=== PATIENT | female | born 1955 | race Caucasian/White ===

== ENCOUNTER 2023-10-17 15:15 | Emergency (ER) | payer MEDICARE ==
[2023-10-17] MEDS ORDERED: SODIUM CHLORIDE 0.9% 1,000 ML IV ONE (15:26)
--- NOTE | 2023-10-17 15:36 | ED ---
Altered Mental Status HPI - General Source: EMS, RN notes reviewed, old records reviewed Mode of arrival: EMS Limitations: altered mental status - History of Present Illness MD Complaint: altered mental status, confusion, decreased responsiveness, weakness -: days(s) Severity: moderate Consistency of Symptoms: waxing and waning, getting worse Context: history of similar presentation Associated Symptoms: nausea/vomiting, weakness Treatments Prior to Arrival: IV fluid <Javan Linn - Last Filed: 10/17/23 19:55> <Jericho Mao - Last Filed: 10/18/23 06:56> <Javan Viveros - Last Filed: 10/18/23 13:42> - General Chief Complaint: Altered Mental Status Stated Complaint: Altered Mental Status Time Seen by Provider: 10/17/23 15:21 - History of Present Illness Initial Comments: This is a 68-year-old female to the emergency department for evaluation today. Patient presents to the emergency department today for evaluation of multiple medical abnormalities including renal failure and liver failure altered mental status. Patient is brought and outside facility transfer here for further evaluation management. Patient was sent to us for evaluation of possibility in regards to need for gallbladder ultrasound On arrival to the emergency department patient is found to have no gallbladder prior history of gallbladder surgery (Javan Linn) - Related Data Allergies Allergy/AdvReac Type Severity Reaction Status Date / Time No Known Allergies Allergy Verified 10/18/23 13:35 Review of Systems ROS Other: All systems not noted in ROS Statement are negative. <Javan Linn - Last Filed: 10/17/23 19:55> ROS Other: All systems not noted in ROS Statement are negative. <Jericho Mao - Last Filed: 10/18/23 06:56> ROS Other: All systems not noted in ROS Statement are negative. <Javan Viveros - Last Filed: 10/18/23 13:42> ROS Statement: Those systems with pertinent positive or pertinent negative responses have been documented in the HPI. Past Medical History Past Medical History: No Reported History History of Any Multi-Drug Resistant Organisms: Unobtainable Past Surgical History: No Surgical Hx Reported Past Psychological History: Unable to Obtain Smoking Status: Unknown if ever smoked Past Alcohol Use History: Unable to Obtain Past Drug Use History: Unable to Obtain <Javan Linn - Last Filed: 10/17/23 19:55> General Exam Limitations: altered mental status General appearance: alert, in no apparent distress Head exam: Present: atraumatic, normocephalic, normal inspection Eye exam: Present: normal appearance, PERRL, EOMI. Absent: scleral icterus, conjunctival injection, periorbital swelling ENT exam: Present: normal exam, mucous membranes moist Neck exam: Present: normal inspection. Absent: tenderness, meningismus, lymphadenopathy Respiratory exam: Present: normal lung sounds bilaterally. Absent: respiratory distress, wheezes, rales, rhonchi, stridor Cardiovascular Exam: Present: regular rate, normal rhythm, normal heart sounds. Absent: systolic murmur, diastolic murmur, rubs, gallop, clicks GI/Abdominal exam: Present: soft, normal bowel sounds. Absent: distended, ten derness, guarding, rebound, rigid Extremities exam: Present: normal inspection, full ROM, normal capillary refill. Absent: tenderness, pedal edema, joint swelling, calf tenderness Back exam: Present: normal inspection Neurological exam: Present: alert, oriented X3, CN II-XII intact Psychiatric exam: Present: normal affect, normal mood Skin exam: Present: warm, dry, intact, normal color. Absent: rash <Javan Linn - Last Filed: 10/17/23 19:55> Course <Javan Linn - Last Filed: 10/17/23 19:55> <Jericho Mao - Last Filed: 10/18/23 06:56> Vital Signs 10/17/23 10/17/23 10/17/23 15:20 17:51 19:38 Temperature 98.2 F Pulse Rate 88 85 85 Respiratory 18 20 16 Rate Blood Pressure 139/55 125/58 101/55 O2 Sat by Pulse 97 97 97 Oximetry 10/17/23 10/17/23 10/18/23 21:52 23:14 01:44 Temperature Pulse Rate 89 88 87 Respiratory 16 16 18 Rate Blood Pressure 119/54 121/56 119/51 O2 Sat by Pulse 98 96 96 Oximetry 10/18/23 10/18/23 10/18/23 02:00 03:00 07:08 Temperature Pulse Rate 86 87 96 Respiratory 13 18 18 Rate Blood Pressure 119/51 115/52 114/46 O2 Sat by Pulse 96 92 L 98 Oximetry 10/18/23 10/18/23 10/18/23 08:05 09:50 10:00 Temperature 97.4 F L Pulse Rate 94 92 93 Respiratory 23 20 18 Rate Blood Pressure 105/49 118/61 114/60 O2 Sat by Pulse 95 94 L 93 L Oximetry 10/18/23 10/18/23 10/18/23 10:10 10:20 10:30 Temperature 97.1 F L 97.1 F L Pulse Rate 92 93 92 Respiratory 19 22 25 H Rate Blood Pressure 100/61 114/70 113/63 O2 Sat by Pulse 94 L 95 95 Oximetry 10/18/23 10/18/23 10/18/23 10:40 10:50 11:00 Temperature Pulse Rate 96 97 96 Respiratory 24 26 H 26 H Rate Blood Pressure 129/84 129/69 130/61 O2 Sat by Pulse 94 L 94 L 93 L Oximetry 10/18/23 10/18/23 10/18/23 11:10 11:20 11:30 Temperature Pulse Rate 92 91 90 Respiratory 19 19 19 Rate Blood Pressure 93/77 114/52 116/59 O2 Sat by Pulse 93 L 94 L 93 L Oximetry 10/18/23 10/18/23 10/18/23 11:45 12:00 12:10 Temperature Pulse Rate 89 90 94 Respiratory 17 22 24 Rate Blood Pressure 108/48 105/57 111/55 O2 Sat by Pulse 94 L 90 L 94 L Oximetry - Reevaluation(s) Reevaluation #1: 10/17/23 17:53 Medical record is reviewed (Javan Linn) Reevaluation #2: 10/17/23 17:53 Patient symptoms are unchanged Patient family continues to deny any significant medical history denies any significant alcohol or drug use They do reiterate the patient was recently prescribed Bactrim for cellulitis (Javan Linn) Reevaluation #3: 10/17/23 17:53 Patient family informed of results and questions answered (Javan Linn) Reevaluation #4: 10/17/23 15:55 Was pt. sent in by a medical professional or institution (, PA, CEMENT TRUCK DRIVER, urgent care, hospital, or penitentiary...) When possible be specific @ -no Did you speak to anyone other than the patient for history (EMS, parent, family, police, friend...)? What history was obtained from this source @ -no Did you review nursing and triage notes (agree or disagree)? Why? @ -agree Are old charts reviewed (outside hosp., previous admission, EMS record, old EKG, old radiological studies, urgent care reports/EKG's, penitentiary records)? Report findings @ -yes Differential Diagnosis (chest pain, altered mental status, abdominal pain women, abdominal pain men, vaginal bleeding, weakness, fever, dyspnea, syncope, headache, dizziness, GI bleed, back pain, seizure, CVA, palpatations, mental health, musculoskeletal)? @ -prior EKG interpreted by me (3pts min.). @ -yes X-rays interpreted by me (1pt min.). @ -yes CT interpreted by me (1pt min.). @ -no U/S interpreted by me (1pt. min.). @ -no What testing was considered but not performed or refused? (CT, X-rays, U/S, labs)? Why? @ -none What meds were considered but not given or refused? Why? @ -none Did you discuss the management of the patient with other professionals (professionals i.e. , PA, CEMENT TRUCK DRIVER, lab, RT, psych nurse, social work supervisor, insurance claims specialist, teacher, security patrol officer, case advocate)? Give summary @ -no Was smoking cessation discussed for >3mins.? @ -no Was critical care preformed (if so, how long)? @ -no Were there social determinants of health that impacted care today? How? (Homelessness, low income, unemployed, alcoholism, drug addiction, transportation, low edu. Level, literacy, decrease access to med. care, half-way, rehab)? @ -none Was there de-escalation of care discussed even if they declined (Discuss DNR or withdrawal of care, Hospice)? DNR status @ -no What co-morbidities impacted this encounter? (DM, HTN, Smoking, COPD, CAD, Cancer, CVA, ARF, Chemo, Hep., AIDS, mental health diagnosis, sleep apnea, morbid obesity)? @ -none Was patient admitted / discharged? Hospital course, mention meds given and route, prescriptions, significant lab abnormalities, going to OR and other pertinent info. @ - Undiagnosed new problem with uncertain prognosis? @ -no Drug Therapy requiring intensive monitoring for toxicity (Heparin, Nitro, Insulin, Cardizem)? @ -no Were any procedures done? @ -no Diagnosis/symptom? @ - Acute, or Chronic, or Acute on Chronic? @ -Acute Uncomplicated (without systemic symptoms) or Complicated (systemic symptoms)? @ -Complicated Side effects of treatment? @ -no Exacerbation, Progression, or Severe Exacerbation? @ -exacerbation Poses a threat to life or bodily function? How? (Chest pain, USA, PR, pneumonia, PE, COPD, DKA, ARF, appy, cholecystitis, CVA, Diverticulitis, Homicidal, Suicidal, threat to staff... and all critical care pts) @ -yes (Javan Linn) Reevaluation #5: 10/17/23 19:58 Differential Altered Mental Status: Hypoglycemia, DKA, hypercapnia, ETOH, overdose, CO poisoning, trauma, myxedema coma, HTN encephalopathy, infection, encephalitis, psychosis, intercranial hemorrhage, hepatic encephalopathy, meningitis, CVA, this is not meant to be an all-inclusive list (Javan Linn) - Consultations Consultation #1: Spoke [facility] regarding transfer Patient for inpatient transfer (Javan Linn) Consultation #2: Patient is a 68-year-old woman who was pending transfer to [facility], to their ICU to see the GI specialist related to hepatic failure. I was called to the bedside at approximately 6:40AM, as it was reported the patient had large dark bowel movement. I did evaluate patient and there does appear to be definitely melanotic stool. I ordered labs. We phone [facility] and they state that the patient is still pending bed availability in the intensive care unit there. (Jericho Mao) Medical Decision Making - Lab Data Result diagrams: 10/17/23 15:45 10/17/23 15:45 <Javan Linn - Last Filed: 10/17/23 19:55> - Lab Data Result diagrams: 10/17/23 15:45 10/17/23 15:45 <Jericho Mao - Last Filed: 10/18/23 06:56> - Lab Data Result diagrams: 10/18/23 07:25 10/18/23 07:25 <Javan Viveros - Last Filed: 10/18/23 13:42> - Medical Decision Making Patient was going to be transferred to [facility] however family was indicating they wanted comfort care for the patient intact patient hospice and they will make any attempts at that I admitted the patient to Dr. Lacy at this point time. (Javan Viveros) - Lab Data Lab Results 10/17/23 10/17/23 10/17/23 Range/Units 15:45 15:45 15:45 WBC 12.8 H (3.8-10.6) k/uL RBC 3.94 (3.80-5.40) m/uL Hgb 11.9 (11.4-16.0) gm/dL Hct 34.6 (34.0-46.0) % MCV 87.7 (80.0-100.0) fL MCH 30.3 (25.0-35.0) pg MCHC 34.6 (31.0-37.0) g/dL RDW 15.2 (11.5-15.5) % Plt Count 82 L (150-450) k/uL MPV 10.8 Neutrophils % 86 % Lymphocytes % 6 % Monocytes % 5 % Eosinophils % 0 % Basophils % 1 % Neutrophils # 11.0 H (1.3-7.7) k/uL Lymphocytes # 0.8 L (1.0-4.8) k/uL Monocytes # 0.7 (0-1.0) k/uL Eosinophils # 0.0 (0-0.7) k/uL Basophils # 0.1 (0-0.2) k/uL Manual Slide Review Performed PT 37.9 H (10.0-12.5) sec INR 3.9 H (<1.2) APTT 46.5 H (22.0-30.0) sec VBG pH (7.31-7.41) VBG pCO2 (37-51) mmHg VBG HCO3 (24-28) mmol/L Sodium (137-145) mmol/L Potassium (3.5-5.1) mmol/L Chloride (98-107) mmol/L Carbon Dioxide (22-30) mmol/L Anion Gap mmol/L BUN (7-17) mg/dL Creatinine (0.52-1.04) mg/dL Est GFR (CKD-EPI)AfAm (>60 ml/min/1.73 sqM) Est GFR (CKD-EPI)NonAf (>60 ml/min/1.73 sqM) Glucose (74-99) mg/dL POC Glucose (mg/dL) (70-110) mg/dL POC Glu Contact Center Representative ID Lactic Ac Sepsis Rflx Plasma Lactic Acid Otoniel (0.7-2.0) mmol/L Calcium (8.4-10.2) mg/dL Phosphorus (2.5-4.5) mg/dL Magnesium (1.6-2.3) mg/dL Total Bilirubin (0.2-1.3) mg/dL AST (14-36) U/L ALT (4-34) U/L Alkaline Phosphatase (38-126) U/L Ammonia (<30) umol/L Troponin I (0.000-0.034) ng/mL Total Protein (6.3-8.2) g/dL Albumin (3.5-5.0) g/dL Urine Color Dark Brown Urine Appearance Turbid H (Clear) Urine pH 5.0 (5.0-8.0) Ur Specific Harrington 1.021 (1.001-1.035) Urine Protein 1+ H (Negative) Urine Glucose (UA) Trace H (Negative) Urine Ketones Negative (Negative) Urine Blood Small H (Negative) Urine Nitrite Negative (Negative) Urine Bilirubin 1+ H (Negative) Urine Urobilinogen 2.0 (<2.0) mg/dL Ur Leukocyte Esterase Small H (Negative) Urine RBC 26 H (0-5) /hpf Urine WBC 27 H (0-5) /hpf Urine Bacteria Rare H (None) /hpf Hyaline Casts 58 H (0-2) /lpf Urine Mucus Occasional H (None) /hpf Stool Occult Blood (Negative) Urine Opiates Screen Not Detected (NotDetected) Ur Oxycodone Screen Not Detected (NotDetected) Urine Methadone Screen Not Detected (NotDetected) Acetaminophen ug/mL Ur Barbiturates Screen Not Detected (NotDetected) U Tricyclic Antidepress Not Detected (NotDetected) Ur Phencyclidine Scrn Not Detected (NotDetected) Ur Amphetamines Screen Not Detected (NotDetected) U Methamphetamines Scrn Not Detected (NotDetected) U Benzodiazepines Scrn Not Detected (NotDetected) Urine Cocaine Screen Not Detected (NotDetected) U Marijuana (THC) Screen Not Detected (NotDetected) Ur Drug Screen Comment SEE COMMENT Serum Alcohol mg/dL Acetone, Qual (Negative) SARS-CoV-2 (PCR) (Not Detectd) Blood Type Blood Type Confirm Blood Type Recheck Bld Type Recheck Status Antibody Screen Transfuse Plasma Spec Expiration Date 10/17/23 10/17/23 10/17/23 Range/Units 15:45 15:45 15:45 WBC (3.8-10.6) k/uL RBC (3.80-5.40) m/uL Hgb (11.4-16.0) gm/dL Hct (34.0-46.0) % MCV (80.0-100.0) fL MCH (25.0-35.0) pg MCHC (31.0-37.0) g/dL RDW (11.5-15.5) % Plt Count (150-450) k/uL MPV Neutrophils % % Lymphocytes % % Monocytes % % Eosinophils % % Basophils % % Neutrophils # (1.3-7.7) k/uL Lymphocytes # (1.0-4.8) k/uL Monocytes # (0-1.0) k/uL Eosinophils # (0-0.7) k/uL Basophils # (0-0.2) k/uL Manual Slide Review PT (10.0-12.5) sec INR (<1.2) APTT (22.0-30.0) sec VBG pH (7.31-7.41) VBG pCO2 (37-51) mmHg VBG HCO3 (24-28) mmol/L Sodium 128 L (137-145) mmol/L Potassium 4.0 (3.5-5.1) mmol/L Chloride 98 (98-107) mmol/L Carbon Dioxide 12 L (22-30) mmol/L Anion Gap 18 mmol/L BUN 54 H (7-17) mg/dL Creatinine 4.84 H (0.52-1.04) mg/dL Est GFR (CKD-EPI)AfAm 10 (>60 ml/min/1.73 sqM) Est GFR (CKD-EPI)NonAf 9 (>60 ml/min/1.73 sqM) Glucose 91 (74-99) mg/dL POC Glucose (mg/dL) (70-110) mg/dL POC Glu Contact Center Representative ID Lactic Ac Sepsis Rflx Plasma Lactic Acid Otoniel (0.7-2.0) mmol/L Calcium 8.1 L (8.4-10.2) mg/dL Phosphorus 6.3 H (2.5-4.5) mg/dL Magnesium 2.1 (1.6-2.3) mg/dL Total Bilirubin 4.4 H (0.2-1.3) mg/dL AST 87 H (14-36) U/L ALT 49 H (4-34) U/L Alkaline Phosphatase 127 H (38-126) U/L Ammonia 75 H (<30) umol/L Troponin I 0.017 (0.000-0.034) ng/mL Total Protein 6.5 (6.3-8.2) g/dL Albumin 2.8 L (3.5-5.0) g/dL Urine Color Urine Appearance (Clear) Urine pH (5.0-8.0) Ur Specific Harrington (1.001-1.035) Urine Protein (Negative) Urine Glucose (UA) (Negative) Urine Ketones (Negative) Urine Blood (Negative) Urine Nitrite (Negative) Urine Bilirubin (Negative) Urine Urobilinogen (<2.0) mg/dL Ur Leukocyte Esterase (Negative) Urine RBC (0-5) /hpf Urine WBC (0-5) /hpf Urine Bacteria (None) /hpf Hyaline Casts (0-2) /lpf Urine Mucus (None) /hpf Stool Occult Blood (Negative) Urine Opiates Screen (NotDetected) Ur Oxycodone Screen (NotDetected) Urine Methadone Screen (NotDetected) Acetaminophen ug/mL Ur Barbiturates Screen (NotDetected) U Tricyclic Antidepress (NotDetected) Ur Phencyclidine Scrn (NotDetected) Ur Amphetamines Screen (NotDetected) U Methamphetamines Scrn (NotDetected) U Benzodiazepines Scrn (NotDetected) Urine Cocaine Screen (NotDetected) U Marijuana (THC) Screen (NotDetected) Ur Drug Screen Comment Serum Alcohol <10 mg/dL Acetone, Qual (Negative) SARS-CoV-2 (PCR) (Not Detectd) Blood Type Blood Type Confirm Blood Type Recheck Bld Type Recheck Status Antibody Screen Transfuse Plasma Spec Expiration Date 10/17/23 10/17/23 10/17/23 Range/Units 16:20 17:47 19:19 WBC (3.8-10.6) k/uL RBC (3.80-5.40) m/uL Hgb (11.4-16.0) gm/dL Hct (34.0-46.0) % MCV (80.0-100.0) fL MCH (25.0-35.0) pg MCHC (31.0-37.0) g/dL RDW (11.5-15.5) % Plt Count (150-450) k/uL MPV Neutrophils % % Lymphocytes % % Monocytes % % Eosinophils % % Basophils % % Neutrophils # (1.3-7.7) k/uL Lymphocytes # (1.0-4.8) k/uL Monocytes # (0-1.0) k/uL Eosinophils # (0-0.7) k/uL Basophils # (0-0.2) k/uL Manual Slide Review PT (10.0-12.5) sec INR (<1.2) APTT (22.0-30.0) sec VBG pH (7.31-7.41) VBG pCO2 (37-51) mmHg VBG HCO3 (24-28) mmol/L Sodium (137-145) mmol/L Potassium (3.5-5.1) mmol/L Chloride (98-107) mmol/L Carbon Dioxide (22-30) mmol/L Anion Gap mmol/L BUN (7-17) mg/dL Creatinine (0.52-1.04) mg/dL Est GFR (CKD-EPI)AfAm (>60 ml/min/1.73 sqM) Est GFR (CKD-EPI)NonAf (>60 ml/min/1.73 sqM) Glucose (74-99) mg/dL POC Glucose (mg/dL) 106 (70-110) mg/dL POC Glu Contact Center Representative ID Biland, Anjelica Lactic Ac Sepsis Rflx Plasma Lactic Acid Otoniel (0.7-2.0) mmol/L Calcium (8.4-10.2) mg/dL Phosphorus (2.5-4.5) mg/dL Magnesium (1.6-2.3) mg/dL Total Bilirubin (0.2-1.3) mg/dL AST (14-36) U/L ALT (4-34) U/L Alkaline Phosphatase (38-126) U/L Ammonia (<30) umol/L Troponin I (0.000-0.034) ng/mL Total Protein (6.3-8.2) g/dL Albumin (3.5-5.0) g/dL Urine Color Urine Appearance (Clear) Urine pH (5.0-8.0) Ur Specific Harrington (1.001-1.035) Urine Protein (Negative) Urine Glucose (UA) (Negative) Urine Ketones (Negative) Urine Blood (Negative) Urine Nitrite (Negative) Urine Bilirubin (Negative) Urine Urobilinogen (<2.0) mg/dL Ur Leukocyte Esterase (Negative) Urine RBC (0-5) /hpf Urine WBC (0-5) /hpf Urine Bacteria (None) /hpf Hyaline Casts (0-2) /lpf Urine Mucus (None) /hpf Stool Occult Blood (Negative) Urine Opiates Screen (NotDetected) Ur Oxycodone Screen (NotDetected) Urine Methadone Screen (NotDetected) Acetaminophen <10.0 ug/mL Ur Barbiturates Screen (NotDetected) U Tricyclic Antidepress (NotDetected) Ur Phencyclidine Scrn (NotDetected) Ur Amphetamines Screen (NotDetected) U Methamphetamines Scrn (NotDetected) U Benzodiazepines Scrn (NotDetected) Urine Cocaine Screen (NotDetected) U Marijuana (THC) Screen (NotDetected) Ur Drug Screen Comment Serum Alcohol mg/dL Acetone, Qual Negative (Negative) SARS-CoV-2 (PCR) Not Detected (Not Detectd) Blood Type Blood Type Confirm Blood Type Recheck Bld Type Recheck Status Antibody Screen Transfuse Plasma Spec Expiration Date 10/18/23 10/18/23 10/18/23 Range/Units 07:20 07:20 07:25 WBC 16.0 H (3.8-10.6) k/uL RBC 3.61 L (3.80-5.40) m/uL Hgb 10.9 L (11.4-16.0) gm/dL Hct 31.8 L (34.0-46.0) % MCV 88.1 (80.0-100.0) fL MCH 30.2 (25.0-35.0) pg MCHC 34.3 (31.0-37.0) g/dL RDW 15.2 (11.5-15.5) % Plt Count 92 L (150-450) k/uL MPV 9.7 Neutrophils % 87 % Lymphocytes % 7 % Monocytes % 4 % Eosinophils % 0 % Basophils % 1 % Neutrophils # 13.9 H (1.3-7.7) k/uL Lymphocytes # 1.1 (1.0-4.8) k/uL Monocytes # 0.6 (0-1.0) k/uL Eosinophils # 0.0 (0-0.7) k/uL Basophils # 0.1 (0-0.2) k/uL Manual Slide Review PT (10.0-12.5) sec INR (<1.2) APTT (22.0-30.0) sec VBG pH (7.31-7.41) VBG pCO2 (37-51) mmHg VBG HCO3 (24-28) mmol/L Sodium (137-145) mmol/L Potassium (3.5-5.1) mmol/L Chloride (98-107) mmol/L Carbon Dioxide (22-30) mmol/L Anion Gap mmol/L BUN (7-17) mg/dL Creatinine (0.52-1.04) mg/dL Est GFR (CKD-EPI)AfAm (>60 ml/min/1.73 sqM) Est GFR (CKD-EPI)NonAf (>60 ml/min/1.73 sqM) Glucose (74-99) mg/dL POC Glucose (mg/dL) (70-110) mg/dL POC Glu Contact Center Representative ID Lactic Ac Sepsis Rflx Plasma Lactic Acid Otoniel (0.7-2.0) mmol/L Calcium (8.4-10.2) mg/dL Phosphorus (2.5-4.5) mg/dL Magnesium (1.6-2.3) mg/dL Total Bilirubin (0.2-1.3) mg/dL AST (14-36) U/L ALT (4-34) U/L Alkaline Phosphatase (38-126) U/L Ammonia (<30) umol/L Troponin I (0.000-0.034) ng/mL Total Protein (6.3-8.2) g/dL Albumin (3.5-5.0) g/dL Urine Color Urine Appearance (Clear) Urine pH (5.0-8.0) Ur Specific Harrington (1.001-1.035) Urine Protein (Negative) Urine Glucose (UA) (Negative) Urine Ketones (Negative) Urine Blood (Negative) Urine Nitrite (Negative) Urine Bilirubin (Negative) Urine Urobilinogen (<2.0) mg/dL Ur Leukocyte Esterase (Negative) Urine RBC (0-5) /hpf Urine WBC (0-5) /hpf Urine Bacteria (None) /hpf Hyaline Casts (0-2) /lpf Urine Mucus (None) /hpf Stool Occult Blood (Negative) Urine Opiates Screen (NotDetected) Ur Oxycodone Screen (NotDetected) Urine Methadone Screen (NotDetected) Acetaminophen ug/mL Ur Barbiturates Screen (NotDetected) U Tricyclic Antidepress (NotDetected) Ur Phencyclidine Scrn (NotDetected) Ur Amphetamines Screen (NotDetected) U Methamphetamines Scrn (NotDetected) U Benzodiazepines Scrn (NotDetected) Urine Cocaine Screen (NotDetected) U Marijuana (THC) Screen (NotDetected) Ur Drug Screen Comment Serum Alcohol mg/dL Acetone, Qual (Negative) SARS-CoV-2 (PCR) (Not Detectd) Blood Type A Positive Blood Type Confirm Blood Type Recheck No Previous Record Bld Type Recheck Status CABO Indicated Antibody Screen NEGATIVE Transfuse Plasma 10/18/2023 Spec Expiration Date 10/21/2023231910/18/23 10/18/23 10/18/23 Range/Units 07:25 07:25 07:25 WBC (3.8-10.6) k/uL RBC (3.80-5.40) m/uL Hgb (11.4-16.0) gm/dL Hct (34.0-46.0) % MCV (80.0-100.0) fL MCH (25.0-35.0) pg MCHC (31.0-37.0) g/dL RDW (11.5-15.5) % Plt Count (150-450) k/uL MPV Neutrophils % % Lymphocytes % % Monocytes % % Eosinophils % % Basophils % % Neutrophils # (1.3-7.7) k/uL Lymphocytes # (1.0-4.8) k/uL Monocytes # (0-1.0) k/uL Eosinophils # (0-0.7) k/uL Basophils # (0-0.2) k/uL Manual Slide Review PT (10.0-12.5) sec INR (<1.2) APTT (22.0-30.0) sec VBG pH 7.30 L (7.31-7.41) VBG pCO2 27 L (37-51) mmHg VBG HCO3 14 L (24-28) mmol/L Sodium 132 L (137-145) mmol/L Potassium 3.6 (3.5-5.1) mmol/L Chloride 102 (98-107) mmol/L Carbon Dioxide 11 L (22-30) mmol/L Anion Gap 19 mmol/L BUN 59 H (7-17) mg/dL Creatinine 5.31 H (0.52-1.04) mg/dL Est GFR (CKD-EPI)AfAm 9 (>60 ml/min/1.73 sqM) Est GFR (CKD-EPI)NonAf 8 (>60 ml/min/1.73 sqM) Glucose 73 L (74-99) mg/dL POC Glucose (mg/dL) (70-110) mg/dL POC Glu Contact Center Representative ID Lactic Ac Sepsis Rflx Plasma Lactic Acid Otoniel 3.8 H* (0.7-2.0) mmol/L Calcium 7.8 L (8.4-10.2) mg/dL Phosphorus (2.5-4.5) mg/dL Magnesium (1.6-2.3) mg/dL Total Bilirubin 4.0 H (0.2-1.3) mg/dL AST 90 H (14-36) U/L ALT 47 H (4-34) U/L Alkaline Phosphatase 116 (38-126) U/L Ammonia 75 H (<30) umol/L Troponin I (0.000-0.034) ng/mL Total Protein 5.8 L (6.3-8.2) g/dL Albumin 2.5 L (3.5-5.0) g/dL Urine Color Urine Appearance (Clear) Urine pH (5.0-8.0) Ur Specific Harrington (1.001-1.035) Urine Protein (Negative) Urine Glucose (UA) (Negative) Urine Ketones (Negative) Urine Blood (Negative) Urine Nitrite (Negative) Urine Bilirubin (Negative) Urine Urobilinogen (<2.0) mg/dL Ur Leukocyte Esterase (Negative) Urine RBC (0-5) /hpf Urine WBC (0-5) /hpf Urine Bacteria (None) /hpf Hyaline Casts (0-2) /lpf Urine Mucus (None) /hpf Stool Occult Blood (Negative) Urine Opiates Screen (NotDetected) Ur Oxycodone Screen (NotDetected) Urine Methadone Screen (NotDetected) Acetaminophen ug/mL Ur Barbiturates Screen (NotDetected) U Tricyclic Antidepress (NotDetected) Ur Phencyclidine Scrn (NotDetected) Ur Amphetamines Screen (NotDetected) U Methamphetamines Scrn (NotDetected) U Benzodiazepines Scrn (NotDetected) Urine Cocaine Screen (NotDetected) U Marijuana (THC) Screen (NotDetected) Ur Drug Screen Comment Serum Alcohol mg/dL Acetone, Qual (Negative) SARS-CoV-2 (PCR) (Not Detectd) Blood Type Blood Type Confirm Blood Type Recheck Bld Type Recheck Status Antibody Screen Transfuse Plasma Spec Expiration Date 10/18/23 10/18/23 10/18/23 Range/Units 07:25 07:25 08:06 WBC (3.8-10.6) k/uL RBC (3.80-5.40) m/uL Hgb (11.4-16.0) gm/dL Hct (34.0-46.0) % MCV (80.0-100.0) fL MCH (25.0-35.0) pg MCHC (31.0-37.0) g/dL RDW (11.5-15.5) % Plt Count (150-450) k/uL MPV Neutrophils % % Lymphocytes % % Monocytes % % Eosinophils % % Basophils % % Neutrophils # (1.3-7.7) k/uL Lymphocytes # (1.0-4.8) k/uL Monocytes # (0-1.0) k/uL Eosinophils # (0-0.7) k/uL Basophils # (0-0.2) k/uL Manual Slide Review PT (10.0-12.5) sec INR (<1.2) APTT (22.0-30.0) sec VBG pH (7.31-7.41) VBG pCO2 (37-51) mmHg VBG HCO3 (24-28) mmol/L Sodium (137-145) mmol/L Potassium (3.5-5.1) mmol/L Chloride (98-107) mmol/L Carbon Dioxide (22-30) mmol/L Anion Gap mmol/L BUN (7-17) mg/dL Creatinine (0.52-1.04) mg/dL Est GFR (CKD-EPI)AfAm (>60 ml/min/1.73 sqM) Est GFR (CKD-EPI)NonAf (>60 ml/min/1.73 sqM) Glucose (74-99) mg/dL POC Glucose (mg/dL) (70-110) mg/dL POC Glu Contact Center Representative ID Lactic Ac Sepsis Rflx Y Plasma Lactic Acid Otoniel (0.7-2.0) mmol/L Calcium (8.4-10.2) mg/dL Phosphorus (2.5-4.5) mg/dL Magnesium (1.6-2.3) mg/dL Total Bilirubin (0.2-1.3) mg/dL AST (14-36) U/L ALT (4-34) U/L Alkaline Phosphatase (38-126) U/L Ammonia (<30) umol/L Troponin I (0.000-0.034) ng/mL Total Protein (6.3-8.2) g/dL Albumin (3.5-5.0) g/dL Urine Color Urine Appearance (Clear) Urine pH (5.0-8.0) Ur Specific Harrington (1.001-1.035) Urine Protein (Negative) Urine Glucose (UA) (Negative) Urine Ketones (Negative) Urine Blood (Negative) Urine Nitrite (Negative) Urine Bilirubin (Negative) Urine Urobilinogen (<2.0) mg/dL Ur Leukocyte Esterase (Negative) Urine RBC (0-5) /hpf Urine WBC (0-5) /hpf Urine Bacteria (None) /hpf Hyaline Casts (0-2) /lpf Urine Mucus (None) /hpf Stool Occult Blood Positive H (Negative) Urine Opiates Screen (NotDetected) Ur Oxycodone Screen (NotDetected) Urine Methadone Screen (NotDetected) Acetaminophen ug/mL Ur Barbiturates Screen (NotDetected) U Tricyclic Antidepress (NotDetected) Ur Phencyclidine Scrn (NotDetected) Ur Amphetamines Screen (NotDetected) U Methamphetamines Scrn (NotDetected) U Benzodiazepines Scrn (NotDetected) Urine Cocaine Screen (NotDetected) U Marijuana (THC) Screen (NotDetected) Ur Drug Screen Comment Serum Alcohol mg/dL Acetone, Qual (Negative) SARS-CoV-2 (PCR) (Not Detectd) Blood Type Blood Type Confirm A Positive Blood Type Recheck Bld Type Recheck Status Antibody Screen Transfuse Plasma Spec Expiration Date Critical Care Time Critical Care Time: Yes Total Critical Care Time: 31 <Javan Linn - Last Filed: 10/17/23 19:55> Disposition Is patient prescribed a controlled substance at d/c from ED?: No Time of Disposition: 18:00 - Out of Hospital Transfer - Req. Specs Out of Hospital Transfer - Requested Specifics: Other Emergency Center ([facility]) <Javan Linn - Last Filed: 10/17/23 19:55> <Jericho Mao - Last Filed: 10/18/23 06:56> <Javan Viveros - Last Filed: 10/18/23 13:42> Clinical Impression: Altered mental status, Uremia, Hyperammonemia, Acute renal failure, Acute liver failure Disposition: ADMITTED IP TO THIS HOSP Condition: Critical Referrals: Erasto Fischer MD [Primary Care Provider] - 1-2 days
[2023-10-17 16:22] LABS: Glucose,Whole Blood 106 mg/dL (70-110)
[2023-10-17 16:28] LABS: INR 3.9 (<1.2); Partial Thromboplastin Time 46.5 sec (22.0-30.0); Prothrombin Time 37.9 sec (10.0-12.5)
[2023-10-17 16:33] LABS: Basophils # (A) 0.1 k/uL (0-0.2); Basophils % (A) 1 %; Eosinophils % (A) 0 %; HCT 34.6 % (34.0-46.0); HGB 11.9 gm/dL (11.4-16.0); Lymphocytes # (A) 0.8 k/uL (1.0-4.8); Lymphocytes % (A) 6 %; MCH 30.3 pg (25.0-35.0); MCHC 34.6 g/dL (31.0-37.0); MCV 87.7 fL (80.0-100.0); Mean Platelet Volume 10.8; Monocytes # (A) 0.7 k/uL (0-1.0); Monocytes % (A) 5 %; Neutrophils % (A) 86 %; RBC 3.94 m/uL (3.80-5.40); RDW 15.2 % (11.5-15.5); WBC 12.8 k/uL (3.8-10.6)
[2023-10-17 16:57] LABS: Appearance,Urine Turbid (Clear); Bacteria,Urine Rare /hpf; Bilirubin,Urine 1+ (Negative); Blood,Urine Small (Negative); Color,Urine Dark Brown; Glucose,Urine (UA) Trace (Negative); Hyaline Casts,Urine 58 /lpf (0-2); Ketones,Urine Negative (Negative); Leukocyte Esterase,Urine Small (Negative); Mucus,Urine Occasional /hpf; Nitrite,Urine Negative (Negative); Protein,Urine 1+ (Negative); RBC,Urine 26 /hpf (0-5); Specific Gravity,Urine 1.021 (1.001-1.035); WBC,Urine 27 /hpf (0-5)
[2023-10-17 17:03] LABS: ALT 49 U/L (4-34); AST 87 U/L (14-36); African American GFR (CKD) 10 (>60 ml/min/1.73 sqM); Albumin 2.8 g/dL (3.5-5.0); Alcohol <10 mg/dL; Alkaline Phosphatase 127 U/L (38-126); Anion Gap 18 mmol/L; Blood Urea Nitrogen 54 mg/dL (7-17); Calcium 8.1 mg/dL (8.4-10.2); Carbon Dioxide 12 mmol/L (22-30); Chloride 98 mmol/L (98-107); Glucose 91 mg/dL (74-99); Magnesium 2.1 mg/dL (1.6-2.3); Non-African American GFR(CKD) 9 (>60 ml/min/1.73 sqM); Phosphorus 6.3 mg/dL (2.5-4.5); Sodium 128 mmol/L (137-145); Total Bilirubin 4.4 mg/dL (0.2-1.3); Total Protein 6.5 g/dL (6.3-8.2)
[2023-10-17 17:09] LABS: Amphetamine Screen,Urine Not Detected (NotDetected); Barbiturate Screen,Urine Not Detected (NotDetected); Benzodiazepines Screen,Urine Not Detected (NotDetected); Cocaine Screen,Urine Not Detected (NotDetected); Methadone Screen, Urine Not Detected (NotDetected); Opiate Screen,Urine Not Detected (NotDetected); Oxycodone Screen, Urine Not Detected (NotDetected); Phencyclidine Screen,Urine Not Detected (NotDetected); Tricyclic Antidepressant,Urine Not Detected (NotDetected); Urn Cannabinoid Scrn Not Detected (NotDetected)
[2023-10-17 17:16] LABS: Platelet Count 82 k/uL (150-450)
[2023-10-17] MEDS ORDERED: SODIUM CHLORIDE 0.9% 1,000 ML IV STA (17:38)
[2023-10-17] MEDS ORDERED: AMPICILLIN-SULBACTAM 3 GM in SODIUM CHLORIDE 0.9% 100 ML IVPB STA (17:38)
--- NOTE | 2023-10-17 17:41 | CT ---
EXAMINATION TYPE: CT ChestAbdPelvis wo con DATE OF EXAM: 10/17/2023 COMPARISON: None HISTORY: 68-year-old female with confusion, pain, AMS and abdominal bloating TECHNIQUE: Contiguous axial scanning of the chest, abdomen, and pelvis without IV contrast. Coronal a nd sagittal reconstructions performed. CT DLP: 1500.8 mGycm Automated exposure control for dose reduction was used. FINDINGS: Chest: Heart normal size without pericardial effusion. Generalized anasarca change. Aorta normal caliber with conventional branching anatomy. No obvious thoracic lymphadenopathy though assessment is limited by prominent breathing motion. Multifocal peribronchial vascular and peripheral groundglass airspace opacities especially in the upp er and mid lungs. No pleural effusion. ABDOMEN: Severe generalized anasarca change. Moderate abdominopelvic ascites. Limitations due to lack of IV contrast and extensive breathing motion. Liver mildly enlarged at 18.3 cm. Spleen is mildly enlarged at 14.0 cm. There may be diffuse gastric fold thickening or this could relate to nondistention. No obvious hydropic gallbladder change. Noncontrast appearance of the adrenal glands, kidneys, and pancreas otherwise show no gross abnormali ty. No dilated small bowel or free air is seen. Right limited assessment of the colon. Unable to exclude fold thickening of the ascending colon. Pelvis: Large pelvic ascites. Leger catheter is in place collapsing the bladder. Uterus is anteverted. The re gion of the ovaries were seen. No pelvic adenopathy seen. Bones: No obvious osseous destructive process. Prominent motion artifact and movement by the patient limiti ng the osseous structures. Normal-appearing sternal foramen. IMPRESSION: 1. MULTIFOCAL PERIBRONCHOVASCULAR AND PERIPHERAL GROUNDGLASS AIRSPACE DISEASE ESPECIALLY IN THE UPPER AND MIDLUNGS. CONSIDER COVID PNEUMONIA. 2. SEVERE GENERALIZED ANASARCA CHANGE. MODERATE ABDOMINAL AND MODERATE TO LARGE PELVIC ASCITES FLUID. FURTHER CLINICAL WORKUP AND EVALUATION IS ADVISED. 3. MILD SPLENOMEGALY (LIVER 18.3 CM AND SPLEEN 14.0 CM). 4. POSSIBLE GASTRIC FOLD THICKENING. POSSIBLE WALL THICKENING OF THE ASCENDING COLON WELL. UNABLE TO EXCLUDE UNDERLYING GASTRITIS OR NONSPECIFIC ASCENDING COLITIS. EXAM IS VERY LIMITED DUE TO LACK OF CONTRAST, GENERALIZED ANASARCA/ASCITES, AND EXTENSIVE PATIENT MOTION.
[2023-10-17 19:00] LABS: Acetaminophen <10.0 ug/mL
[2023-10-18 07:42] LABS: Basophils # (A) 0.1 k/uL (0-0.2); Basophils % (A) 1 %; Eosinophils % (A) 0 %; HCT 31.8 % (34.0-46.0); HGB 10.9 gm/dL (11.4-16.0); Lymphocytes # (A) 1.1 k/uL (1.0-4.8); Lymphocytes % (A) 7 %; MCH 30.2 pg (25.0-35.0); MCHC 34.3 g/dL (31.0-37.0); MCV 88.1 fL (80.0-100.0); Mean Platelet Volume 9.7; Monocytes # (A) 0.6 k/uL (0-1.0); Monocytes % (A) 4 %; Neutrophils # (A) 13.9 k/uL (1.3-7.7); Neutrophils % (A) 87 %; RBC 3.61 m/uL (3.80-5.40); RDW 15.2 % (11.5-15.5)
[2023-10-18 07:43] LABS: Platelet Count 92 k/uL (150-450); VBG PH 7.3 (7.31-7.41)
[2023-10-18 07:54] LABS: ALT 47 U/L (4-34); AST 90 U/L (14-36); African American GFR (CKD) 9 (>60 ml/min/1.73 sqM); Albumin 2.5 g/dL (3.5-5.0); Alkaline Phosphatase 116 U/L (38-126); Anion Gap 19 mmol/L; Blood Urea Nitrogen 59 mg/dL (7-17); Calcium 7.8 mg/dL (8.4-10.2); Carbon Dioxide 11 mmol/L (22-30); Chloride 102 mmol/L (98-107); Glucose 73 mg/dL (74-99); Non-African American GFR(CKD) 8 (>60 ml/min/1.73 sqM); Potassium 3.6 mmol/L (3.5-5.1); Sodium 132 mmol/L (137-145); Total Protein 5.8 g/dL (6.3-8.2)
[2023-10-18 07:59] LABS: Lactic Acid, Venous 3.8 mmol/L (0.7-2.0)
[2023-10-18] MEDS ORDERED: PIPERACILLIN-TAZOBACTAM 3.375 GM in SODIUM CHLORIDE 0.9% 100 ML IVPB SCH (08:00)
[2023-10-18] MEDS ORDERED: OCTREOTIDE 100 MCG/ML INJ IVP ONE (11:00)
[2023-10-18] MEDS ORDERED: OCTREOTIDE 500 MCG in SODIUM CHLORIDE 0.9% 250 ML IV ONE (11:15)
[2023-10-18] MEDS ORDERED: MORPHINE SULFATE 4 MG/ML SYRINGE IV PRN (13:30)
[2023-10-18] MEDS ORDERED: ATROPINE OPHTH SOLN 1% 5ML BTL SUBLINGUAL PRN (13:30)
[2023-10-18] MEDS ORDERED: MORPHINE SULFATE (100 MG/2 ML) 100 MG in SODIUM CHLORIDE 0.9% 100 ML IV SCH (13:30)
[2023-10-18] MEDS ORDERED: MORPHINE SULFATE 2 MG/ML SYRINGE IV PRN (13:30)
[2023-10-18 13:39] LABS: HCT 31.5 % (34.0-46.0); HGB 10.7 gm/dL (11.4-16.0); MCH 30.8 pg (25.0-35.0); MCV 90.6 fL (80.0-100.0); Mean Platelet Volume 10.3; Platelet Count 138 k/uL (150-450); RBC 3.48 m/uL (3.80-5.40); RDW 15.5 % (11.5-15.5)
[2023-10-18 13:56] LABS: ALT 54 U/L (4-34); AST 127 U/L (14-36); African American GFR (CKD) 8 (>60 ml/min/1.73 sqM); Albumin 2.5 g/dL (3.5-5.0); Alkaline Phosphatase 118 U/L (38-126); Anion Gap 25 mmol/L; Blood Urea Nitrogen 58 mg/dL (7-17); Calcium 7.7 mg/dL (8.4-10.2); Chloride 102 mmol/L (98-107); Non-African American GFR(CKD) 7 (>60 ml/min/1.73 sqM); Potassium 3.8 mmol/L (3.5-5.1); Sodium 133 mmol/L (137-145); Total Bilirubin 3.9 mg/dL (0.2-1.3); Total Protein 5.9 g/dL (6.3-8.2)
[2023-10-18 14:01] LABS: Carbon Dioxide 6 mmol/L (22-30); Glucose 44 mg/dL (74-99)
[2023-10-18 14:09] LABS: Glucose,Whole Blood 46 mg/dL (70-110)
[2023-10-18 14:27] LABS: Lymphocytes # (M) 2.25 k/uL (1.0-4.8); Neutrophils # (M) 21.75 k/uL (1.3-7.7); Neutrophils % (M) 87 %; Nucleated Red Blood Cells 0 /100 WBC (0-0); Total Cells Counted 100
[2023-10-18 14:28] LABS: Crenated RBC Present; Poikilocytosis (M) Present; Toxic Granulation Present; Toxic Vacuolation Present
--- NOTE | 2023-10-18 14:33 | P.HPIM ---
History of Present Illness H&P Date: 10/18/23 Chief Complaint: comfort care 68 year old woman with no significant medical history presented as a transfer from [facility] for presumed sepsis. Pt was subsequently found to be in fulminant liver failure during her ER workup as well as severe oliguric kidney failure. Pt was noted to have significant coagulopathy from liver failure as well and had several episodes of hematemesis, hematochezia and hematuria. She rec'd 1U FFP while hospitalized, was started on IVF, antibiotics, and octreotide. Given her acute liver failure, patient was recommended to be transferred to [facility] for liver transplatation evaluation, but unfortunately declined rapidly while in the ER. Pts family tells me that patient was in her usual state of health when she developed LE cellulitis about one week ago and was prescribed bactrim by her PCP. She had a rapid decline in mentation, and energy levels prompting her initial evaluation in [facility]. Review of systems could not be completed due to patient's mental status Gen: In respiratory distress, generally appears very ill, poor breathing pattern Eyes: PERRL, no scleral injection or icterus HENT: normocephalic, atraumatic, good hearing acuity, moist mucous membranes Neck: no tracheal deviation, full range of motion Resp: Impaired air exchange, CVS: good distal perfusion x 4, bilateral pitting edema GI: soft, NTTP, ND, no hepatosplenomegaly : no suprapubic tenderness, no CVAT, christian catheter is present MSK: no clubbing, no cyanosis, no noted contractures of extremities Skin: no noted rashes, petechiae; temperature of skin is appropriate Neuro: moving all extremities without signs of weakness, CN II-XII intact Patient was afebrile, normotensive, 88% on 3 Griselda nasal cannula, breathing at rate of 30, heart rate 84. CBC demonstrated leukocytosis 16,, cytopenias and 92, anemia of 10.9. Sodium was 132, CO2 is 11, anion gap was 19, BUN is 69, creatinine is 5.3, glucose was 73, lactic acid was 3.8. Liver function test showed total bilirubin of 4.0, AST of 90, ALT of 47, total protein of 5.8, albumin of 2.5. Alcohol level was positive. Covid was negative. EKG demonstrated normal sinus rhythm with normal axis. CT of the abdomen/pelvis showed multifocal groundglass airspace disease, severe generalized anasarca with moderate to large pelvic ascites, mild splenomegaly, gastric fold thickening versus ascending colon thickening. 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 Unfortunately, patient clinically declined rapidly. After discussion with the patient's and daughter, they requested time to have a family meeting so that they can decide on whether patient would prefer comfort care. After some deliberation, patient's family opted for comfort care for this patient. -Morphine drip was started with morphine when necessary for agitation, air hunger -Atropine drops for secretions -Hospice was consulted Past Medical History Past Medical History: No Reported History History of Any Multi-Drug Resistant Organisms: Unobtainable Past Surgical History: No Surgical Hx Reported Past Psychological History: Unable to Obtain Smoking Status: Unknown if ever smoked Past Alcohol Use History: Unable to Obtain Past Drug Use History: Unable to Obtain Medications and Allergies Home Medications Medication Instructions Recorded Confirmed Type Sulfamethox-Tmp 800-160Mg [Bactrim 1 tab PO Q12HR 10/18/23 10/18/23 History DS 800-160 mg] Allergies Allergy/AdvReac Type Severity Reaction Status Date / Time No Known Allergies Allergy Verified 10/18/23 13:35 Physical Exam Osteopathic Statement: *. No significant issues noted on an osteopathic structural exam other than those noted in the History and Physical/Consult. Vitals: Vital Signs Temp Pulse Resp BP Pulse Ox 10/18/23 12:10 94 24 111/55 94 L 10/18/23 12:00 90 22 105/57 90 L 10/18/23 11:45 89 17 108/48 94 L 10/18/23 11:30 90 19 116/59 93 L 10/18/23 11:20 91 19 114/52 94 L 10/18/23 11:10 92 19 93/77 93 L 10/18/23 11:00 96 26 H 130/61 93 L 10/18/23 10:50 97 26 H 129/69 94 L 10/18/23 10:40 96 24 129/84 94 L 10/18/23 10:30 92 25 H 113/63 95 10/18/23 10:20 97.1 F L 93 22 114/70 95 10/18/23 10:10 97.1 F L 92 19 100/61 94 L 10/18/23 10:00 93 18 114/60 93 L 10/18/23 09:50 92 20 118/61 94 L 10/18/23 08:05 97.4 F L 94 23 105/49 95 10/18/23 07:08 96 18 114/46 98 10/18/23 03:00 87 18 115/52 92 L 10/18/23 02:00 86 13 119/51 96 10/18/23 01:44 87 18 119/51 96 10/17/23 23:14 88 16 121/56 96 10/17/23 21:52 89 16 119/54 98 10/17/23 19:38 85 16 101/55 97 10/17/23 17:51 85 20 125/58 97 10/17/23 15:20 98.2 F 88 18 139/55 97 Intake and Output 10/17/23 10/18/23 10/18/23 22:59 06:59 14:59 Intake Total 0 Balance 0 Intake: Blood Product 0 Unit 0 Other: Weight 79.379 kg Results CBC & Chem 7: 10/18/23 13:23 10/18/23 13:23 Labs: Abnormal Lab Results - Last 24 Hours (Table) 10/17/23 10/17/23 10/17/23 Range/Units 15:45 15:45 15:45 WBC 12.8 H (3.8-10.6) k/uL RBC (3.80-5.40) m/uL Hgb (11.4-16.0) gm/dL Hct (34.0-46.0) % Plt Count 82 L (150-450) k/uL Neutrophils # 11.0 H (1.3-7.7) k/uL Lymphocytes # 0.8 L (1.0-4.8) k/uL PT 37.9 H (10.0-12.5) sec INR 3.9 H (<1.2) APTT 46.5 H (22.0-30.0) sec VBG pH (7.31-7.41) VBG pCO2 (37-51) mmHg VBG HCO3 (24-28) mmol/L Sodium (137-145) mmol/L Carbon Dioxide (22-30) mmol/L BUN (7-17) mg/dL Creatinine (0.52-1.04) mg/dL Glucose (74-99) mg/dL POC Glucose (mg/dL) (70-110) mg/dL Plasma Lactic Acid Otoniel (0.7-2.0) mmol/L Calcium (8.4-10.2) mg/dL Phosphorus (2.5-4.5) mg/dL Total Bilirubin (0.2-1.3) mg/dL AST (14-36) U/L ALT (4-34) U/L Alkaline Phosphatase (38-126) U/L Ammonia (<30) umol/L Total Protein (6.3-8.2) g/dL Albumin (3.5-5.0) g/dL Urine Appearance Turbid H (Clear) Urine Protein 1+ H (Negative) Urine Glucose (UA) Trace H (Negative) Urine Blood Small H (Negative) Urine Bilirubin 1+ H (Negative) Ur Leukocyte Esterase Small H (Negative) Urine RBC 26 H (0-5) /hpf Urine WBC 27 H (0-5) /hpf Urine Bacteria Rare H (None) /hpf Hyaline Casts 58 H (0-2) /lpf Urine Mucus Occasional H (None) /hpf Stool Occult Blood (Negative) 10/17/23 10/17/23 10/18/23 Range/Units 15:45 15:45 07:25 WBC 16.0 H (3.8-10.6) k/uL RBC 3.61 L (3.80-5.40) m/uL Hgb 10.9 L (11.4-16.0) gm/dL Hct 31.8 L (34.0-46.0) % Plt Count 92 L (150-450) k/uL Neutrophils # 13.9 H (1.3-7.7) k/uL Lymphocytes # (1.0-4.8) k/uL PT (10.0-12.5) sec INR (<1.2) APTT (22.0-30.0) sec VBG pH (7.31-7.41) VBG pCO2 (37-51) mmHg VBG HCO3 (24-28) mmol/L Sodium 128 L (137-145) mmol/L Carbon Dioxide 12 L (22-30) mmol/L BUN 54 H (7-17) mg/dL Creatinine 4.84 H (0.52-1.04) mg/dL Glucose (74-99) mg/dL POC Glucose (mg/dL) (70-110) mg/dL Plasma Lactic Acid Otoniel (0.7-2.0) mmol/L Calcium 8.1 L (8.4-10.2) mg/dL Phosphorus 6.3 H (2.5-4.5) mg/dL Total Bilirubin 4.4 H (0.2-1.3) mg/dL AST 87 H (14-36) U/L ALT 49 H (4-34) U/L Alkaline Phosphatase 127 H (38-126) U/L Ammonia 75 H (<30) umol/L Total Protein (6.3-8.2) g/dL Albumin 2.8 L (3.5-5.0) g/dL Urine Appearance (Clear) Urine Protein (Negative) Urine Glucose (UA) (Negative) Urine Blood (Negative) Urine Bilirubin (Negative) Ur Leukocyte Esterase (Negative) Urine RBC (0-5) /hpf Urine WBC (0-5) /hpf Urine Bacteria (None) /hpf Hyaline Casts (0-2) /lpf Urine Mucus (None) /hpf Stool Occult Blood (Negative) 10/18/23 10/18/23 10/18/23 Range/Units 07:25 07:25 07:25 WBC (3.8-10.6) k/uL RBC (3.80-5.40) m/uL Hgb (11.4-16.0) gm/dL Hct (34.0-46.0) % Plt Count (150-450) k/uL Neutrophils # (1.3-7.7) k/uL Lymphocytes # (1.0-4.8) k/uL PT (10.0-12.5) sec INR (<1.2) APTT (22.0-30.0) sec VBG pH 7.30 L (7.31-7.41) VBG pCO2 27 L (37-51) mmHg VBG HCO3 14 L (24-28) mmol/L Sodium 132 L (137-145) mmol/L Carbon Dioxide 11 L (22-30) mmol/L BUN 59 H (7-17) mg/dL Creatinine 5.31 H (0.52-1.04) mg/dL Glucose 73 L (74-99) mg/dL POC Glucose (mg/dL) (70-110) mg/dL Plasma Lactic Acid Otoniel 3.8 H* (0.7-2.0) mmol/L Calcium 7.8 L (8.4-10.2) mg/dL Phosphorus (2.5-4.5) mg/dL Total Bilirubin 4.0 H (0.2-1.3) mg/dL AST 90 H (14-36) U/L ALT 47 H (4-34) U/L Alkaline Phosphatase (38-126) U/L Ammonia 75 H (<30) umol/L Total Protein 5.8 L (6.3-8.2) g/dL Albumin 2.5 L (3.5-5.0) g/dL Urine Appearance (Clear) Urine Protein (Negative) Urine Glucose (UA) (Negative) Urine Blood (Negative) Urine Bilirubin (Negative) Ur Leukocyte Esterase (Negative) Urine RBC (0-5) /hpf Urine WBC (0-5) /hpf Urine Bacteria (None) /hpf Hyaline Casts (0-2) /lpf Urine Mucus (None) /hpf Stool Occult Blood (Negative) 10/18/23 10/18/23 10/18/23 Range/Units 07:25 13:23 13:23 WBC 25.0 H (3.8-10.6) k/uL RBC 3.48 L (3.80-5.40) m/uL Hgb 10.7 L (11.4-16.0) gm/dL Hct 31.5 L (34.0-46.0) % Plt Count 138 L (150-450) k/uL Neutrophils # (1.3-7.7) k/uL Lymphocytes # (1.0-4.8) k/uL PT (10.0-12.5) sec INR (<1.2) APTT (22.0-30.0) sec VBG pH (7.31-7.41) VBG pCO2 (37-51) mmHg VBG HCO3 (24-28) mmol/L Sodium 133 L (137-145) mmol/L Carbon Dioxide 6 L* (22-30) mmol/L BUN 58 H (7-17) mg/dL Creatinine 5.95 H (0.52-1.04) mg/dL Glucose 44 L* (74-99) mg/dL POC Glucose (mg/dL) (70-110) mg/dL Plasma Lactic Acid Otoniel (0.7-2.0) mmol/L Calcium 7.7 L (8.4-10.2) mg/dL Phosphorus (2.5-4.5) mg/dL Total Bilirubin 3.9 H (0.2-1.3) mg/dL AST 127 H (14-36) U/L ALT 54 H (4-34) U/L Alkaline Phosphatase (38-126) U/L Ammonia (<30) umol/L Total Protein 5.9 L (6.3-8.2) g/dL Albumin 2.5 L (3.5-5.0) g/dL Urine Appearance (Clear) Urine Protein (Negative) Urine Glucose (UA) (Negative) Urine Blood (Negative) Urine Bilirubin (Negative) Ur Leukocyte Esterase (Negative) Urine RBC (0-5) /hpf Urine WBC (0-5) /hpf Urine Bacteria (None) /hpf Hyaline Casts (0-2) /lpf Urine Mucus (None) /hpf Stool Occult Blood Positive H (Negative) 10/18/23 Range/Units 14:08 WBC (3.8-10.6) k/uL RBC (3.80-5.40) m/uL Hgb (11.4-16.0) gm/dL Hct (34.0-46.0) % Plt Count (150-450) k/uL Neutrophils # (1.3-7.7) k/uL Lymphocytes # (1.0-4.8) k/uL PT (10.0-12.5) sec INR (<1.2) APTT (22.0-30.0) sec VBG pH (7.31-7.41) VBG pCO2 (37-51) mmHg VBG HCO3 (24-28) mmol/L Sodium (137-145) mmol/L Carbon Dioxide (22-30) mmol/L BUN (7-17) mg/dL Creatinine (0.52-1.04) mg/dL Glucose (74-99) mg/dL POC Glucose (mg/dL) 46 L (70-110) mg/dL Plasma Lactic Acid Otoniel (0.7-2.0) mmol/L Calcium (8.4-10.2) mg/dL Phosphorus (2.5-4.5) mg/dL Total Bilirubin (0.2-1.3) mg/dL AST (14-36) U/L ALT (4-34) U/L Alkaline Phosphatase (38-126) U/L Ammonia (<30) umol/L Total Protein (6.3-8.2) g/dL Albumin (3.5-5.0) g/dL Urine Appearance (Clear) Urine Protein (Negative) Urine Glucose (UA) (Negative) Urine Blood (Negative) Urine Bilirubin (Negative) Ur Leukocyte Esterase (Negative) Urine RBC (0-5) /hpf Urine WBC (0-5) /hpf Urine Bacteria (None) /hpf Hyaline Casts (0-2) /lpf Urine Mucus (None) /hpf Stool Occult Blood (Negative)
[2023-10-18] MEDS ORDERED: LORazepam 2 MG/ML INJ IV PRN (14:40)
[2023-10-18 15:07] VITALS: TEMP 97
[2023-10-18 17:13] VITALS: BP 65/35; PULSE 79; RESP 17
== END 2023-10-18 17:00 | disposition other institution (70) ==
LOC: EC 15:15
DX: R41.82 Altered mental status, unspecified (principal); N19 Unspecified kidney failure; K72.90 Hepatic failure, unspecified without coma; E72.20 Disorder of urea cycle metabolism, unspecified; Z20.822 Contact with and (suspected) exposure to COVID-19
CPT/HCPCS: 99291; 96365; 96366 ×10; 96361 ×9; 36430; 96367 ×3; 96368; 96375; 36415 ×2; 93005; 86900; 86901; 80053 ×2; 82140 ×2; 82803; 82009; 83605; 83735; 84100; 84484; 85025 ×2; 85610; 85730; 86850; 82272; 81001; 87040; 80306; 80143; 87635; 71250; 74176; P9059; G0480; J2543; J2354 ×2; J0295; J2270; 80320

== ENCOUNTER 2023-10-18 16:57 | Emergency (ER) | payer MEDICAID, MEDICARE ==
[2023-10-18] MEDS ORDERED: MORPHINE SULFATE 2 MG/ML SYRINGE IV PRN (16:58)
[2023-10-18] MEDS ORDERED: ONDANSETRON 4 MG/2 ML VIAL IVP PRN (16:58)
[2023-10-18] MEDS ORDERED: ACETAMINOPHEN TAB 325 MG TAB PO PRN (16:58)
[2023-10-18] MEDS ORDERED: ATROPINE OPHTH SOLN 1% 5ML BTL SUBLINGUAL PRN (16:58)
[2023-10-18] MEDS ORDERED: LORazepam 2 MG/ML INJ IV PRN (16:58)
[2023-10-18] MEDS: MORPHINE SULFATE (100 MG/2 ML) 100 MG in SODIUM CHLORIDE 0.9% 100 ML IV SCH (17:00)
[2023-10-18] MEDS ORDERED: SCOPOLAMINE 1 MG/72 HR PATCH TRANSDERM SCH (17:30)
--- NOTE | 2023-10-18 18:56 | P.HPIM ---
History of Present Illness H&P Date: 10/18/23 Chief Complaint: hospice 68 year old woman with no significant medical history presented as a transfer from [facility] for presumed sepsis. Pt was subsequently found to be in fulminant liver failure during her ER workup as well as severe oliguric kidney failure. Pt was noted to have significant coagulopathy from liver failure as well and had several episodes of hematemesis, hematochezia and hematuria. She rec'd 1U FFP while hospitalized, was started on IVF, antibiotics, and octreotide. Given her acute liver failure, patient was recommended to be transferred to [facility] for liver transplatation evaluation, but unfortunately declined rapidly while in the ER. Pts family tells me that patient was in her usual state of health when she developed LE cellulitis about one week ago and was prescribed bactrim by her PCP. She had a rapid decline in mentation, and energy levels prompting her initial evaluation in [facility]. Review of systems could not be completed due to patient's mental status Gen: In respiratory distress, generally appears very ill, poor breathing pattern Eyes: PERRL, no scleral injection or icterus HENT: normocephalic, atraumatic, good hearing acuity, moist mucous membranes Neck: no tracheal deviation, full range of motion Resp: Impaired air exchange, CVS: good distal perfusion x 4, bilateral pitting edema GI: soft, NTTP, ND, no hepatosplenomegaly : no suprapubic tenderness, no CVAT, christian catheter is present MSK: no clubbing, no cyanosis, no noted contractures of extremities Skin: no noted rashes, petechiae; temperature of skin is appropriate Neuro: moving all extremities without signs of weakness, CN II-XII intact Patient was afebrile, normotensive, 88% on 3 Griselda nasal cannula, breathing at rate of 30, heart rate 84. CBC demonstrated leukocytosis 16,, cytopenias and 92, anemia of 10.9. Sodium was 132, CO2 is 11, anion gap was 19, BUN is 69, creatinine is 5.3, glucose was 73, lactic acid was 3.8. Liver function test showed total bilirubin of 4.0, AST of 90, ALT of 47, total protein of 5.8, albumin of 2.5. Alcohol level was positive. Covid was negative. EKG demonstrated normal sinus rhythm with normal axis. CT of the abdomen/pelvis showed multifocal groundglass airspace disease, severe generalized anasarca with moderate to large pelvic ascites, mild splenomegaly, gastric fold thickening versus ascending colon thickening. 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 Unfortunately, patient clinically declined rapidly. After discussion with the patient's and daughter, they requested time to have a family meeting so that they can decide on whether patient would prefer comfort care. After some deliberation, patient's family opted for comfort care for this patient. -Morphine drip was started with morphine when necessary for agitation, air hunger -Atropine drops for secretions -Hospice was consulted Past Medical History Past Medical History: No Reported History History of Any Multi-Drug Resistant Organisms: Unobtainable Past Surgical History: No Surgical Hx Reported Past Psychological History: Unable to Obtain Smoking Status: Unknown if ever smoked Past Alcohol Use History: Unable to Obtain Past Drug Use History: Unable to Obtain Medications and Allergies Home Medications Medication Instructions Recorded Confirmed Type Sulfamethox-Tmp 800-160Mg [Bactrim 1 tab PO Q12HR 10/18/23 10/18/23 History DS 800-160 mg] Allergies Allergy/AdvReac Type Severity Reaction Status Date / Time No Known Allergies Allergy Verified 10/18/23 13:35 Physical Exam Osteopathic Statement: *. No significant issues noted on an osteopathic structural exam other than those noted in the History and Physical/Consult. Vitals: Intake and Output 10/18/23 10/18/23 10/18/23 06:59 14:59 22:59 Other: Weight 79.37 kg
--- NOTE | 2023-10-18 18:57 | P.DS ---
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 Pt was subsequently found to be in fulminant liver failure during her ER workup as well as severe oliguric kidney failure. Pt was noted to have significant coagulopathy from liver failure as well and had several episodes of hematemesis, hematochezia and hematuria. She rec'd 1U FFP while hospitalized, was started on IVF, antibiotics, and octreotide. Given her acute liver failure, patient was recommended to be transferred to [facility] for liver transplatation evaluation, but unfortunately declined rapidly while in the ER. Patient was afebrile, normotensive, 88% on 3 Griselda nasal cannula, breathing at rate of 30, heart rate 84. CBC demonstrated leukocytosis 16,, cytopenias and 92, anemia of 10.9. Sodium was 132, CO2 is 11, anion gap was 19, BUN is 69, creatinine is 5.3, glucose was 73, lactic acid was 3.8. Liver function test showed total bilirubin of 4.0, AST of 90, ALT of 47, total protein of 5.8, albumin of 2.5. Alcohol level was positive. Covid was negative. EKG demonstrated normal sinus rhythm with normal axis. CT of the abdomen/pelvis showed multifocal groundglass airspace disease, severe generalized anasarca with moderate to large pelvic ascites, mild splenomegaly, gastric fold thickening versus ascending colon thickening. Patient was initially treated with antibiotics, octreotide, FFP transfusion with plans to transfer to [facility]. Unfortunately, patient clinically declined rapidly. After discussion with the patient's and daughter, they requested time to have a family meeting so that they can decide on whether patient would prefer comfort care. After some deliberation, patient's family opted for comfort care for this patient. Pt comfortably. Plan - Discharge Summary New Discharge Prescriptions: No Action Sulfamethox-Tmp 800-160Mg [Bactrim DS 800-160 mg] 1 tab PO Q12HR Discharge Medication List Sulfamethox-Tmp 800-160Mg [Bactrim DS 800-160 mg] 1 tab PO Q12HR 10/18/23 [History]
== END 2023-10-18 18:30 | disposition expired ==
LOC: EC 16:57 → 5NMEDONC 16:58 → UNDOADMIN 16:58 → UNDODISIN 18:30
DX: Z51.5 Encounter for palliative care (principal); J96.01 Acute respiratory failure with hypoxia; K72.00 Acute and subacute hepatic failure without coma; A41.9 Sepsis, unspecified organism; K92.0 Hematemesis; D68.9 Coagulation defect, unspecified; R18.8 Other ascites; E87.20 Acidosis, unspecified; K92.1 Melena; K71.9 Toxic liver disease, unspecified; N19 Unspecified kidney failure; D64.9 Anemia, unspecified; Z28.310 Unvaccinated for COVID-19; R16.1 Splenomegaly, not elsewhere classified; R31.9 Hematuria, unspecified; Z66 Do not resuscitate
CPT/HCPCS: 99284; J2270